=== PATIENT | female | born 1995 | race American Indian/Alaskan Native ===

== ENCOUNTER → 2019-08-11 12:59 | Outpatient (BNVA) | payer MEDICAID, SELFPAY | PROVIDERS: Family Provider Family Medicine; Visit Provider Registered Nurse | DX: Z02.0 Encounter for examination for admission to educational institution (principal); M75.81 Other shoulder lesions, right shoulder; L20.9 Atopic dermatitis, unspecified | CPT/HCPCS: 86580 ==

== ENCOUNTER 2019-09-02 20:00 | Outpatient (CLI) | payer MEDICAID, SELFPAY | END 2019-09-02 20:01 | disposition home or self-care (01) | LOC: SLEEP 09-03 10:40 | PROVIDERS: Family Provider Family Medicine; Visit Provider Registered Nurse | DX: G47.33 Obstructive sleep apnea (adult) (pediatric) (principal) | CPT/HCPCS: 95810; 95811 ==